=== PATIENT | male | born 1995 | race Caucasian/White ===

== ENCOUNTER 2018-05-04 02:07 | Emergency (ER) | payer OTHER ==
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
== END 2018-05-04 02:59 | disposition home or self-care (01) ==
LOC: MW.ED 02:07
DX: S69.91XA Unspecified injury of right wrist, hand and finger(s), initial encounter (principal); M79.89 Other specified soft tissue disorders; W23.0XXA Caught, crushed, jammed, or pinched between moving objects, initial encounter
CPT/HCPCS: 73130-26-RT; 73130-RT; 99283